=== PATIENT | male | born 1965 | race Caucasian/White ===

== ENCOUNTER 2016-12-24 21:30 | Inpatient (IN) | payer SELFPAY ==
[~2016-12-24] VITALS: Ht 177.8 cm; Wt 77.1 kg
[~2016-12-24 21:30] MED LIST: INDOCIN25 MG PO; MOTRIN600 MG PO; NORCO 5/3251 TABLET PO
[2016-12-24 22:13] LABS: HEMATOCRIT 42.4 % (38.0-50.0); MCH 26.2 PG (29.0-34.0); MCHC 31.8 G/DL (30.0-36.0); MCV 82.3 FL (86-99); MEAN PLAT.VOLUME 11.4 uM^3 (9.0-12.4); PLATELET COUNT 218 K/uL (156-360); RBC DIS.WIDTH-SD 54.5 % (39-53); RED BLOOD COUNT 5.15 M/uL (4.00-5.50); WHITE BLOOD COUNT 7.7 K/uL (4.1-10.2)
[2016-12-24 22:26] LABS: CHLORIDE 104 mEq/L (99-109); POTASSIUM 4.4 mEq/L (3.7-5.4); SODIUM 139 mEq/L (136-147)
[2016-12-24 22:27] LABS: GLUCOSE 90 mg/dL (70-99)
[2016-12-24 22:29] LABS: ANION GAP 7 MEQ/L (2-14)
[2016-12-24 22:31] LABS: GFR ESTIMATE (CALCULATED) > 59 mL/min/
[2016-12-24 22:32] LABS: UREA NITROGEN (BUN) 16 mg/dL (9-23)
[2016-12-24 22:33] LABS: TROP-I INTERPRETATION NEGATIVE; TROPONIN-I 0.01 ng/mL (0.0-0.30)
[2016-12-25 00:24] LABS: ADD MIUA? NO; BILIRUBIN NEGATIVE; BLOOD NEGATIVE; COLOR YELLOW ((YELLOW)); GLUCOSE (STRIP) NEGATIVE; KETONES NEGATIVE; LEUKOCYTES NEGATIVE; NITRITE NEGATIVE; PROTEIN (STRIP) NEGATIVE; SPECIFIC GRAVITY 1.036 (1.000-1.030); UCUL ADDED? NO; UROBILINOGEN 0.2 MG/DL (0.2-1.0)
[2016-12-25] MEDS ORDERED: OXYCODONE HCL15 MG PO (01:11)
[2016-12-25] MEDS ORDERED: LISINOPRIL-HCT1 EAC3 PO (01:12)
[2016-12-25] MEDS ORDERED: LORATADINE10 M2 PO (01:13)
[2016-12-25] MEDS ORDERED: TAMSULOSIN HCL0.4 MG PO (01:14)
[2016-12-25] MEDS ORDERED: ASPIR-LOW81 MG PO (01:14)
[2016-12-25] MEDS ORDERED: VENTOLIN HFA18 GM IH (01:15)
[2016-12-25] MEDS ORDERED: XANAX1 MG PO (01:18)
[2016-12-25 04:22] VITALS: BP 114/69
[2016-12-25 05:57] LABS: TROP-I INTERPRETATION NEGATIVE; TROPONIN-I 0.02 ng/mL (0.0-0.30)
[2016-12-25 12:28] VITALS: BP 110/76
[2016-12-25 14:33] LABS: TROP-I INTERPRETATION NEGATIVE; TROPONIN-I 0.03 ng/mL (0.0-0.30)
[2016-12-25 19:27] VITALS: BP 90/58
[2016-12-25 23:05] VITALS: BP 109/70
[2016-12-26 07:19] VITALS: BP 108/70
[2016-12-26 10:41] VITALS: BP 93/57
[2016-12-26 15:46] VITALS: BP 89/51
[2016-12-26 16:18] VITALS: BP 96/53
[2016-12-26 19:43] VITALS: BP 101/65
[2016-12-27] VITALS (7 sets, daily range): BP systolic 91–112; BP diastolic 52–66
[2016-12-27 05:35] LABS: EOSINOPHIL (%) 8.9 % (0-5); EOSINOPHIL COUNT 0.5 K/uL (0-0.3); HEMATOCRIT 40.2 % (38.0-50.0); IMMATURE GRANULOCYTE (%) 0.2 % (0.0-0.7); INSTRUMENT ABS NEUTROPHIL CT 2.8 K/uL; LYMPHOCYTE COUNT 1.5 K/uL (1.0-2.8); MCHC 32.6 G/DL (30.0-36.0); MCV 82.7 FL (86-99); MEAN PLAT.VOLUME 11.7 uM^3 (9.0-12.4); MONOCYTE (%) 9.3 % (3-12); MONOCYTE COUNT 0.5 K/uL (0-0.8); NEUTROPHIL (%) 52.4 % (45-76); NEUTROPHIL COUNT 2.8 K/uL (1.8-6.4); PLATELET COUNT 192 K/uL (156-360); RBC DIS.WIDTH-CV 17.7 % (11.8-14.6); RBC DIS.WIDTH-SD 53.7 % (39-53); RED BLOOD COUNT 4.86 M/uL (4.00-5.50); WHITE BLOOD COUNT 5.4 K/uL (4.1-10.2)
[2016-12-27 06:38] LABS: ANION GAP 3 MEQ/L (2-14); CHLORIDE 107 MEQ/L (99-109); GFR ESTIMATE (CALCULATED) > 59 mL/min/; GLUCOSE 81 mg/dL (70-99); POTASSIUM 4.9 MEQ/L (3.7-5.4); SAMPLE HEMOLYSIS CHECK 0; SAMPLE ICTERIC CHECK 0; SAMPLE LIPEMIA CHECK 0; SODIUM 138 MEQ/L (136-147); UREA NITROGEN (BUN) 14 mg/dL (9-23)
[2016-12-28] VITALS: BP 95/58
[2016-12-28 03:40] VITALS: BP 95/62
[2016-12-28 05:44] LABS: EOSINOPHIL (%) 8.2 % (0-5); EOSINOPHIL COUNT 0.5 K/uL (0-0.3); HEMATOCRIT 39.2 % (38.0-50.0); IMMATURE GRANULOCYTE (%) 0.2 % (0.0-0.7); LYMPHOCYTE COUNT 1.6 K/uL (1.0-2.8); MCH 26.2 PG (29.0-34.0); MCHC 31.9 G/DL (30.0-36.0); MEAN PLAT.VOLUME 11.8 uM^3 (9.0-12.4); MONOCYTE (%) 10.4 % (3-12); MONOCYTE COUNT 0.6 K/uL (0-0.8); NEUTROPHIL (%) 52.5 % (45-76); PLATELET COUNT 185 K/uL (156-360); RBC DIS.WIDTH-CV 17.3 % (11.8-14.6); RBC DIS.WIDTH-SD 51.5 % (39-53); RED BLOOD COUNT 4.78 M/uL (4.00-5.50); WHITE BLOOD COUNT 5.7 K/uL (4.1-10.2)
[2016-12-28 06:09] LABS: ANION GAP 5 MEQ/L (2-14); CHLORIDE 106 MEQ/L (99-109); GFR ESTIMATE (CALCULATED) > 59 mL/min/; GLUCOSE 83 mg/dL (70-99); POTASSIUM 4.7 MEQ/L (3.7-5.4); SAMPLE HEMOLYSIS CHECK 0; SAMPLE ICTERIC CHECK 0; SAMPLE LIPEMIA CHECK 0; SODIUM 135 MEQ/L (136-147); UREA NITROGEN (BUN) 14 mg/dL (9-23)
[2016-12-28 09:05] VITALS: BP 100/63
[2016-12-28 12:28] VITALS: BP 102/59
[2016-12-28] MEDS ORDERED: METRONIDAZOLE500 MG PO (13:45)
[2016-12-28] MEDS ORDERED: NICOTINE PATCH1 EAC2 TD (13:46)
[2016-12-28] MEDS ORDERED: LEVOFLOXACIN500 MG PO (13:46)
[2016-12-28] MEDS ORDERED: OXYCODONE HCL15 MG PO (15:26)
== END 2016-12-28 16:00 | disposition home or self-care (01) | DRG 728 ==
LOC: EME 21:30 → EDOF 12-25 02:27 → 5WEST 12-25 02:27 → EDOF 12-25 02:27 → ENRESERV 12-25 02:29 → 5WEST 12-25 03:18 → EDOF 12-25 03:18 → 5WEST 12-26 14:12 → ENRESERV 12-26 14:15 → CANRESERV 12-26 14:15 → 5WEST 12-28 16:00
PROVIDERS: Emergency Medicine; Internal Medicine
DX: N45.1 Epididymitis (principal); K57.32 Diverticulitis of large intestine without perforation or abscess without bleeding; F11.20 Opioid dependence, uncomplicated; I95.9 Hypotension, unspecified; I86.1 Scrotal varices; R07.89 Other chest pain; S39.011A Strain of muscle, fascia and tendon of abdomen, initial encounter; I10 Essential (primary) hypertension; G89.29 Other chronic pain; M54.9 Dorsalgia, unspecified; Z72.0 Tobacco use; Z85.47 Personal history of malignant neoplasm of testis; Z79.82 Long term (current) use of aspirin; Z88.5 Allergy status to narcotic agent; Z82.49 Family history of ischemic heart disease and other diseases of the circulatory system
CPT/HCPCS: 71275; 76870; 80048; 80048 91; 81003; 82533 91; 84484; 85025; 85027; 93005; 99281; 99285; G0378; J0744; J1650; J1885; J2270; J2405; J2765; J7030; S0030

== ENCOUNTER 2017-01-22 12:55 | Emergency (ER) | payer SELFPAY ==
[~2017-01-22] VITALS: Ht 180.3 cm; Wt 78.9 kg
[~2017-01-22 12:55] MED LIST changes: +ASPIR-LOW81 MG PO; +LEVOFLOXACIN500 MG PO; +LISINOPRIL-HCT1 EAC3 PO; +LORATADINE10 M2 PO; +METRONIDAZOLE500 MG PO; +NICOTINE PATCH1 EAC2 TD; +OXYCODONE HCL15 MG PO; +TAMSULOSIN HCL0.4 MG PO; +VENTOLIN HFA18 GM IH; +XANAX1 MG PO
[2017-01-22 13:24] LABS: HEMATOCRIT 42.8 % (38.0-50.0); MCHC 32.7 G/DL (30.0-36.0); MCV 82.6 FL (86-99); MEAN PLAT.VOLUME 11.3 uM^3 (9.0-12.4); PLATELET COUNT 208 K/uL (156-360); RBC DIS.WIDTH-CV 15.1 % (11.8-14.6); RBC DIS.WIDTH-SD 45.6 % (39-53); RED BLOOD COUNT 5.18 M/uL (4.00-5.50); WHITE BLOOD COUNT 10.9 K/uL (4.1-10.2)
[2017-01-22 13:33] LABS: CHLORIDE 104 mEq/L (99-109); POTASSIUM 4.1 mEq/L (3.7-5.4); SODIUM 137 mEq/L (136-147)
[2017-01-22 13:36] LABS: GLUCOSE 92 mg/dL (70-99)
[2017-01-22 13:37] LABS: ANION GAP 7 MEQ/L (2-14)
[2017-01-22 13:38] LABS: ADD MIUA? YES; BILIRUBIN NEGATIVE; BLOOD LARGE; COLOR AMBER ((YELLOW)); GLUCOSE (STRIP) NEGATIVE; KETONES NEGATIVE; LEUKOCYTES NEGATIVE; NITRITE NEGATIVE; PROTEIN (STRIP) 100
[2017-01-22 13:39] LABS: ALKALINE PHOSPHATASE 104 IU/L (3-129); GFR ESTIMATE (CALCULATED) > 59 mL/min/
[2017-01-22 13:40] LABS: UREA NITROGEN (BUN) 15 mg/dL (9-23)
[2017-01-22 13:43] LABS: LIPASE 36 U/L (1.0-51.0)
[2017-01-22 13:43] LABS: BACTERIA NONE SEEN /HPF; EPITHELIAL CELLS NONE SEEN /HPF; MUCUS 3+ /LPF; RED BLOOD CELLS TNTC /HPF (0-5); UCUL ADDED? YES; WHITE BLOOD CELLS NONE SEEN /HPF (0-5)
[2017-01-22] MEDS ORDERED: ZOFRAN4 MG PO (16:50)
[2017-01-22] MEDS ORDERED: CIPRO500 MG PO (16:50)
[2017-01-22] MEDS ORDERED: NORCO 5/3251 TABLET PO (16:57)
[2017-01-22 16:58] VITALS: BP 120/84
== END 2017-01-22 16:59 | disposition home or self-care (01) ==
LOC: EME 12:55
DX: K57.32 Diverticulitis of large intestine without perforation or abscess without bleeding (principal); R31.9 Hematuria, unspecified; Z87.442 Personal history of urinary calculi; Z85.47 Personal history of malignant neoplasm of testis; Z90.79 Acquired absence of other genital organ(s); Z79.82 Long term (current) use of aspirin
CPT/HCPCS: 74176; 80053; 81003; 83690; 85027; 87086; 99281; 99284; J3010

== ENCOUNTER 2017-03-22 13:21 | Emergency (ER) | payer SELFPAY ==
[~2017-03-22] VITALS: Ht 177.8 cm; Wt 97.6 kg
[~2017-03-22 13:21] MED LIST changes: +CIPRO500 MG PO; +ZOFRAN4 MG PO
[2017-03-22 13:50] LABS: APPEARANCE SL.HAZY ((CLEAR)); BILIRUBIN NEGATIVE; BLOOD LARGE; GLUCOSE (STRIP) NEGATIVE; KETONES NEGATIVE; LEUKOCYTES NEGATIVE; NITRITE NEGATIVE; PROTEIN (STRIP) 30; SPECIFIC GRAVITY 1.024 (1.000-1.030); UROBILINOGEN 0.2 MG/DL (0.2-1.0)
[2017-03-22 13:51] LABS: COLOR LT.RED ((YELLOW))
[2017-03-22 13:53] LABS: HEMATOCRIT 45.8 % (38.0-50.0); HEMOGLOBIN 14.9 G/DL (12.5-16.6); MCH 27.2 PG (29.0-34.0); MCHC 32.5 G/DL (30.0-36.0); MCV 83.7 FL (86-99); PLATELET COUNT 191 K/uL (156-360); RBC DIS.WIDTH-CV 13.4 % (11.8-14.6); RBC DIS.WIDTH-SD 41.1 % (39-53); RED BLOOD COUNT 5.47 M/uL (4.00-5.50)
[2017-03-22 14:01] LABS: BACTERIA NONE SEEN /HPF; CALCIUM OXALATE CRYSTALS 3+ /HPF; EPITHELIAL CELLS RARE /HPF; MUCUS NONE SEEN /LPF; RED BLOOD CELLS TNTC /HPF (0-5); UCUL ADDED? YES; WHITE BLOOD CELLS 0-5 /HPF (0-5)
[2017-03-22 14:08] LABS: CHLORIDE 108 mEq/L (99-109); POTASSIUM 4.3 mEq/L (3.7-5.4); SODIUM 140 mEq/L (136-147)
[2017-03-22 14:10] LABS: GLUCOSE 85 mg/dL (70-99)
[2017-03-22 14:14] LABS: GFR ESTIMATE (CALCULATED) > 59 mL/min/ (58.99-99999)
[2017-03-22 14:15] LABS: UREA NITROGEN (BUN) 19 mg/dL (9-23)
[2017-03-22 14:39] LABS: ALBUMIN 4.2 g/dL (3.2-4.8)
[2017-03-22 14:41] LABS: TOTAL PROTEIN 7.7 g/dL (6.4-8.3)
[2017-03-22 14:43] LABS: TOTAL BILIRUBIN 0.2 mg/dL (0.0-1.0)
[2017-03-22 14:44] LABS: ALKALINE PHOSPHATASE 124 IU/L (3-129)
[2017-03-22 14:46] LABS: AST (GOT) 52 IU/L (2-34)
[2017-03-22 14:47] LABS: ALT (GPT) 76 IU/L (3-49); DIRECT BILIRUBIN 0.1 mg/dL (0.0-0.3)
[2017-03-22 14:48] LABS: LIPASE 68 U/L (1.0-51.0)
[2017-03-22] MEDS ORDERED: ULTRACET1 TABLET PO (17:33)
[2017-03-22] MEDS ORDERED: CIPRO500 MG PO (17:33)
[2017-03-22] MEDS ORDERED: ZOFRAN ODT8 MG PO (17:33)
[2017-03-22] MEDS ORDERED: FLAGYL500 MG PO (17:33)
[2017-03-22 17:52] VITALS: BP 142/91
== END 2017-03-22 17:52 | disposition home or self-care (01) ==
LOC: EME 13:21
DX: K52.9 Noninfective gastroenteritis and colitis, unspecified (principal); F41.9 Anxiety disorder, unspecified; F32.9 Major depressive disorder, single episode, unspecified; Z85.47 Personal history of malignant neoplasm of testis; Z79.82 Long term (current) use of aspirin; Z88.5 Allergy status to narcotic agent
CPT/HCPCS: 74176; 80048; 80076; 81003; 83690; 85027; 87086; 99281; 99283; J1885

== ENCOUNTER 2017-04-24 09:51 | Emergency (ER) | payer SELFPAY ==
[~2017-04-24] VITALS: Ht 180.3 cm; Wt 82.5 kg
[~2017-04-24 09:51] MED LIST changes: +FLAGYL500 MG PO; +ULTRACET1 TABLET PO; +ZOFRAN ODT8 MG PO
[2017-04-24 11:02] LABS: HEMATOCRIT 46.5 % (38.0-50.0); HEMOGLOBIN 15.1 G/DL (12.5-16.6); MCH 26.6 PG (29.0-34.0); MCHC 32.5 G/DL (30.0-36.0); PLATELET COUNT 182 K/uL (156-360); RBC DIS.WIDTH-CV 14.3 % (11.8-14.6); RBC DIS.WIDTH-SD 42.7 % (39-53); RED BLOOD COUNT 5.67 M/uL (4.00-5.50); WHITE BLOOD COUNT 6.4 K/uL (4.1-10.2)
[2017-04-24 11:11] LABS: APPEARANCE CLEAR ((CLEAR)); BILIRUBIN NEGATIVE; BLOOD NEGATIVE; COLOR STRAW ((YELLOW)); GLUCOSE (STRIP) NEGATIVE; KETONES NEGATIVE; LEUKOCYTES NEGATIVE; NITRITE NEGATIVE; PROTEIN (STRIP) NEGATIVE; SPECIFIC GRAVITY 1.008 (1.000-1.030); UCUL ADDED? NO; UROBILINOGEN 0.2 MG/DL (0.2-1.0)
[2017-04-24 11:13] LABS: ALBUMIN 4.1 g/dL (3.2-4.8); CHLORIDE 104 mEq/L (99-109); POTASSIUM 4.3 mEq/L (3.7-5.4); SODIUM 140 mEq/L (136-147)
[2017-04-24 11:15] LABS: GLUCOSE 86 mg/dL (70-99)
[2017-04-24 11:16] LABS: TOTAL PROTEIN 7.7 g/dL (6.4-8.3)
[2017-04-24 11:17] LABS: TOTAL BILIRUBIN 0.5 mg/dL (0.0-1.0)
[2017-04-24 11:19] LABS: ALKALINE PHOSPHATASE 139 IU/L (3-129); CREATININE 1.1 mg/dL (0.6-1.3); GFR ESTIMATE (CALCULATED) > 59 mL/min/ (58.99-99999)
[2017-04-24 11:20] LABS: UREA NITROGEN (BUN) 11 mg/dL (9-23)
[2017-04-24 11:21] LABS: AST (GOT) 62 IU/L (2-34)
[2017-04-24 11:22] LABS: ALT (GPT) 222 IU/L (3-49)
[2017-04-24 13:44] LABS: LIPASE 256 U/L (1.0-51.0)
[2017-04-24] MEDS ORDERED: PERCOCET 5/31 TABLET PO (14:22)
[2017-04-24 14:34] VITALS: BP 127/69
== END 2017-04-24 14:51 | disposition home or self-care (01) ==
LOC: EME 09:51
PROVIDERS: Emergency Medicine
DX: N43.3 Hydrocele, unspecified (principal); K85.90 Acute pancreatitis without necrosis or infection, unspecified; I86.1 Scrotal varices; K57.30 Diverticulosis of large intestine without perforation or abscess without bleeding; R00.1 Bradycardia, unspecified; F32.9 Major depressive disorder, single episode, unspecified; F41.9 Anxiety disorder, unspecified; Z79.82 Long term (current) use of aspirin; Z92.21 Personal history of antineoplastic chemotherapy; Z85.47 Personal history of malignant neoplasm of testis; Z90.79 Acquired absence of other genital organ(s); Z88.5 Allergy status to narcotic agent
CPT/HCPCS: 74176; 76870; 80053; 81003; 83690; 85027; 93005; 99281; 99285; J2405; J3010; J7030

== ENCOUNTER 2017-05-20 18:14 | Emergency (ER) | payer SELFPAY ==
[~2017-05-20] VITALS: Ht 177.8 cm; Wt 82.5 kg
[~2017-05-20 18:14] MED LIST changes: +PERCOCET 5/31 TABLET PO
[2017-05-20 19:18] LABS: HEMATOCRIT 47.3 % (38.0-50.0); HEMOGLOBIN 15.3 G/DL (12.5-16.6); MCH 26.3 PG (29.0-34.0); MCHC 32.3 G/DL (30.0-36.0); MCV 81.3 FL (86-99); PLATELET COUNT 205 K/uL (156-360); RBC DIS.WIDTH-CV 14.6 % (11.8-14.6); RBC DIS.WIDTH-SD 42.4 % (39-53); RED BLOOD COUNT 5.82 M/uL (4.00-5.50); WHITE BLOOD COUNT 7.5 K/uL (4.1-10.2)
[2017-05-20 19:44] LABS: ALBUMIN 4.2 g/dL (3.2-4.8); CHLORIDE 106 mEq/L (99-109); SODIUM 142 mEq/L (136-147)
[2017-05-20 19:46] LABS: GLUCOSE 78 mg/dL (70-99)
[2017-05-20 19:48] LABS: TOTAL BILIRUBIN 0.3 mg/dL (0.0-1.0)
[2017-05-20 19:50] LABS: ALKALINE PHOSPHATASE 129 IU/L (3-129); CREATININE 1.1 mg/dL (0.6-1.3); GFR ESTIMATE (CALCULATED) > 59 mL/min/ (58.99-99999)
[2017-05-20 19:51] LABS: UREA NITROGEN (BUN) 15 mg/dL (9-23)
[2017-05-20 19:52] LABS: AST (GOT) 37 IU/L (2-34)
[2017-05-20 19:53] LABS: ALT (GPT) 72 IU/L (3-49)
[2017-05-20 22:08] LABS: LIPASE 62 U/L (1.0-51.0)
[2017-05-20 22:22] VITALS: BP 135/87
[2017-05-21] MEDS ORDERED: CARAFATE1 GM PO (10:39)
[2017-05-21] MEDS ORDERED: ULTRAM50 MG PO (10:39)
[2017-05-21] MEDS ORDERED: OMEPRAZOLE40 M1 PO (10:39)
== END 2017-05-20 22:18 | disposition left against medical advice (07) ==
LOC: EME 18:14
DX: R07.9 Chest pain, unspecified (principal); R10.9 Unspecified abdominal pain; Z53.21 Procedure and treatment not carried out due to patient leaving prior to being seen by health care provider
CPT/HCPCS: 80053; 81003; 83690; 85027; 93005

== ENCOUNTER 2017-05-21 09:32 | Emergency (ER) | payer SELFPAY ==
[~2017-05-21] VITALS: Ht 177.8 cm; Wt 81.8 kg
[2017-05-21 10:03] LABS: HEMATOCRIT 47.3 % (38.0-50.0); HEMOGLOBIN 15.5 G/DL (12.5-16.6); MCH 26.7 PG (29.0-34.0); MCHC 32.8 G/DL (30.0-36.0); MCV 81.6 FL (86-99); RBC DIS.WIDTH-CV 14.7 % (11.8-14.6); RBC DIS.WIDTH-SD 43.7 % (39-53); WHITE BLOOD COUNT 6.4 K/uL (4.1-10.2)
[2017-05-21 10:14] LABS: ALBUMIN 4.3 g/dL (3.2-4.8); CHLORIDE 106 mEq/L (99-109); POTASSIUM 4.4 mEq/L (3.7-5.4); SODIUM 141 mEq/L (136-147)
[2017-05-21 10:16] LABS: GLUCOSE 92 mg/dL (70-99); TOTAL PROTEIN 7.9 g/dL (6.4-8.3)
[2017-05-21 10:20] LABS: APPEARANCE CLEAR ((CLEAR)); BILIRUBIN NEGATIVE; BLOOD NEGATIVE; COLOR YELLOW ((YELLOW)); GLUCOSE (STRIP) NEGATIVE; KETONES NEGATIVE; LEUKOCYTES NEGATIVE; NITRITE NEGATIVE; PROTEIN (STRIP) NEGATIVE; SPECIFIC GRAVITY 1.025 (1.000-1.030); UCUL ADDED? NO; UROBILINOGEN 0.2 MG/DL (0.2-1.0)
[2017-05-21 10:20] LABS: ALKALINE PHOSPHATASE 130 IU/L (3-129); CREATININE 1.1 mg/dL (0.6-1.3); GFR ESTIMATE (CALCULATED) > 59 mL/min/ (58.99-99999)
[2017-05-21 10:21] LABS: UREA NITROGEN (BUN) 13 mg/dL (9-23)
[2017-05-21 10:22] LABS: AST (GOT) 36 IU/L (2-34)
[2017-05-21 10:23] LABS: ALT (GPT) 68 IU/L (3-49); LIPASE 57 U/L (1.0-51.0)
[2017-05-21 10:26] LABS: TOTAL BILIRUBIN 0.6 mg/dL (0.0-1.0)
[2017-05-21] MEDS ORDERED: OMEPRAZOLE40 M1 PO (10:39)
[2017-05-21] MEDS ORDERED: CARAFATE1 GM PO (10:39)
[2017-05-21] MEDS ORDERED: ULTRAM50 MG PO (10:39)
[2017-05-21 10:51] LABS: PLAT.SUFFICIENCY ADEQUATE; PLATELET COUNT 195 K/uL (156-360)
[2017-05-21 10:58] VITALS: BP 128/95
== END 2017-05-21 11:01 | disposition home or self-care (01) ==
LOC: EME 09:32
DX: R10.10 Upper abdominal pain, unspecified (principal); N50.811 Right testicular pain; R11.2 Nausea with vomiting, unspecified; Z85.47 Personal history of malignant neoplasm of testis; Z79.82 Long term (current) use of aspirin
CPT/HCPCS: 80053; 81003; 83690; 85027; 99281; 99284; J1885

== ENCOUNTER 2017-05-22 17:04 | Emergency (ER) | payer SELFPAY ==
[~2017-05-22] VITALS: Ht 177.8 cm; Wt 83.0 kg
[~2017-05-22 17:04] MED LIST changes: +CARAFATE1 GM PO; +OMEPRAZOLE40 M1 PO; +ULTRAM50 MG PO
[2017-05-22 18:08] LABS: HEMATOCRIT 41.7 % (38.0-50.0); HEMOGLOBIN 13.9 G/DL (12.5-16.6); MCHC 33.3 G/DL (30.0-36.0); MCV 81.1 FL (86-99); PLATELET COUNT 182 K/uL (156-360); RBC DIS.WIDTH-CV 14.3 % (11.8-14.6); RED BLOOD COUNT 5.14 M/uL (4.00-5.50); WHITE BLOOD COUNT 7.6 K/uL (4.1-10.2)
[2017-05-22 18:31] LABS: CHLORIDE 106 mEq/L (99-109); POTASSIUM 3.8 mEq/L (3.7-5.4); SODIUM 141 mEq/L (136-147)
[2017-05-22 18:33] LABS: GLUCOSE 106 mg/dL (70-99)
[2017-05-22 18:37] LABS: CREATININE 1.1 mg/dL (0.6-1.3); GFR ESTIMATE (CALCULATED) > 59 mL/min/ (58.99-99999)
[2017-05-22 18:38] LABS: UREA NITROGEN (BUN) 16 mg/dL (9-23)
[2017-05-22 19:44] VITALS: BP 144/83
[2017-05-22 19:56] LABS: APPEARANCE CLEAR ((CLEAR)); BILIRUBIN NEGATIVE; BLOOD NEGATIVE; COLOR YELLOW ((YELLOW)); GLUCOSE (STRIP) NEGATIVE; KETONES NEGATIVE; LEUKOCYTES NEGATIVE; NITRITE NEGATIVE; PROTEIN (STRIP) NEGATIVE; SPECIFIC GRAVITY 1.017 (1.000-1.030); UCUL ADDED? NO
== END 2017-05-22 19:45 | disposition left against medical advice (07) ==
LOC: EME 17:04
PROVIDERS: Emergency Medicine Emergency Medical Services
DX: N44.00 Torsion of testis, unspecified (principal); Z85.47 Personal history of malignant neoplasm of testis; Z85.51 Personal history of malignant neoplasm of bladder; F41.9 Anxiety disorder, unspecified; F32.9 Major depressive disorder, single episode, unspecified; Z88.5 Allergy status to narcotic agent
CPT/HCPCS: 76870; 80048; 81003; 85027; 99281; 99284; J0780; J3010

== ENCOUNTER 2017-09-05 23:00 | Observation (INO) | payer SELFPAY ==
[~2017-09-05] VITALS: Ht 177.8 cm; Wt 79.3 kg
[2017-09-05 23:55] LABS: HEMOGLOBIN 14.3 G/DL (12.5-16.6); MCH 28.2 PG (29.0-34.0); MCV 82.8 FL (86-99); PLATELET COUNT 136 K/uL (156-360); RBC DIS.WIDTH-CV 14.6 % (11.8-14.6); RBC DIS.WIDTH-SD 43.8 % (39-53); RED BLOOD COUNT 5.07 M/uL (4.00-5.50); WHITE BLOOD COUNT 6.7 K/uL (4.1-10.2)
[2017-09-06 00:05] LABS: CHLORIDE 108 mEq/L (99-109); POTASSIUM 4.2 mEq/L (3.7-5.4); SODIUM 142 mEq/L (136-147)
[2017-09-06 00:06] LABS: GLUCOSE 98 mg/dL (70-99)
[2017-09-06 00:10] LABS: GFR ESTIMATE (CALCULATED) > 59 mL/min/ (58.99-99999)
[2017-09-06 00:11] LABS: UREA NITROGEN (BUN) 11 mg/dL (9-23)
[2017-09-06 00:16] LABS: TROP-I INTERPRETATION NEGATIVE; TROPONIN-I < 0.01 ng/mL (0.0-0.30)
[2017-09-06 06:29] LABS: TROP-I INTERPRETATION NEGATIVE; TROPONIN-I < 0.01 ng/mL (0.0-0.30)
[2017-09-06 06:41] LABS: HDL CHOLESTEROL 36 MG/DL (Desirable>=40); LDL CHOLESTEROL 58 mg/dL (Desirable<100); NON-HDL CHOLESTEROL 81 mg/dL (Desirable<160); SERUM ETHYL ALCOHOL < 10 mg/dL; TOTAL CHOLESTEROL 117 mg/dL (Desirable<200); TRIGLYCERIDES 114 MG/DL (Normal: <150)
[2017-09-06 08:00] VITALS: BP 100/58
[2017-09-06 11:52] VITALS: BP 126/78
[2017-09-06 12:35] LABS: TROP-I INTERPRETATION NEGATIVE; TROPONIN-I < 0.01 ng/mL (0.0-0.30)
[2017-09-06] MEDS ORDERED: OMEPRAZOLE40 M1 PO (12:38)
== END 2017-09-06 14:55 | disposition home or self-care (01) ==
LOC: EME 23:00 → EDOF 09-06 05:21 → ENRESERV 09-06 05:31 → 4SOUTH 09-06 07:19 → ENPENDDIS 09-06 12:57 → 4SOUTH 09-06 14:55
PROVIDERS: Physician Assistant Medical
DX: R07.89 Other chest pain (principal); R13.10 Dysphagia, unspecified; K44.9 Diaphragmatic hernia without obstruction or gangrene; Z85.47 Personal history of malignant neoplasm of testis; Z95.3 Presence of xenogenic heart valve; F41.9 Anxiety disorder, unspecified; F32.9 Major depressive disorder, single episode, unspecified; Z87.19 Personal history of other diseases of the digestive system; R91.8 Other nonspecific abnormal finding of lung field; Z88.5 Allergy status to narcotic agent; Z82.49 Family history of ischemic heart disease and other diseases of the circulatory system
CPT/HCPCS: 71046; 71275; 80048; 80061; 80306 90; 81003; 84484; 85027; 93005; 99281; 99285; G0378; G0480; J1650